=== PATIENT | male | born 1990 | race African-American/Black ===

== ENCOUNTER 2021-08-24 16:26 | Emergency (ER) | payer MEDICAID ==
[~2021-08-24] VITALS: Ht 180.3 cm; Wt 90.7 kg
[2021-08-24 20:51] VITALS: BP 152/100
== END 2021-08-24 21:31 | disposition home or self-care (01) ==
LOC: ER 16:26
DX: S93.602A Unspecified sprain of left foot, initial encounter (principal); I10 Essential (primary) hypertension; Z91.010 Allergy to peanuts; W23.0XXA Caught, crushed, jammed, or pinched between moving objects, initial encounter; Y93.89 Activity, other specified; Y92.89 Other specified places as the place of occurrence of the external cause; Y99.8 Other external cause status
CPT/HCPCS: 73630

== ENCOUNTER 2024-11-28 16:01 | Emergency (ER) | payer MEDICAID ==
[~2024-11-28] VITALS: Ht 180.3 cm; Wt 90.0 kg
[2024-11-28] MEDS: TETRACAINE HCL 0.5% OPTH(EYE) SOLN 4ML RIGHTEYE ONE (16:23)
[2024-11-28] MEDS: ERYTHROMY OPTH OINT 5mg/gm 1gm or 3.5gm tube OP ONE (16:23)
[2024-11-28] MEDS: MORPHINE SULFATE INJ 2 MG/ml SYRG IM ONE (16:54)
[2024-11-28 16:55] VITALS: TEMP 98.9; O2SAT 99
--- NOTE | 2024-11-28 16:55 | ED.PDOC ---
Eye-HPI HPI Comments 34-YEAR-OLD MALE PRESENTS TO THE EMERGENCY DEPARTMENT WITH ACCIDENTAL SUPER GLUE TO THE RIGHT EYE. HE STATES HE WAS USING THE SUPER GLUE, SUPER GLUE SQUIRTED OUT OF THE CONTAINER AND LANDED IN THE RIGHT EYE. HE HAS BEEN ATTEMPTING TO RINSE THE EYE WITH WATER. HE HAS BURNING IN THE RIGHT EYE. THE EYELIDS ARE GLUED SHUT. HE HAS A HISTORY OF HYPERTENSION. HE IS DENYING ANY CHEST PAIN, SHORTNESS OF BREATH AT THIS TIME. Chief Complaint: Eye Problem Time Seen by MD: 16:12 Primary Care Provider: UNKNOWN Allergies: Coded Allergies: Peanut Oil (Verified Allergy, Severe, AIRWAY COMPROMISE, 05/27/18) Home Meds Active Scripts Ophthalmic Irrigation Solution (Eye Wash) [place], 1 BOT OP DAILY for 3 Days, #100 ML Prov:JUAN YANG MD 11/28/24 Erythromycin (Erythromycin) 5 Mg/Gm Oin, 1 MG OP TID for 3 Days, #9 OIN Prov:JUAN YANG MD 11/28/24 Mode of Arrival: Ambulatory Eye Location: Right Lids: Location (RIGHT EYELIDS STUCK TOGETHER, 0.5 CM SECTION OF MEDIAL EYELID ABLE TO OPEN, OBSERVED PORTION CONJUNCTIVA IS ERYTHEMATOUS/INJECTED, DRIED SUPER GLUE IN THE LASHES,) Vital Signs Vital Signs Date Time Temp Pulse Resp B/P (MAP) Pulse Ox O2 Delivery O2 Flow Rate FiO2 11/28/24 16:55 81 17 99 Room Air 11/28/24 16:55 98.9 159/108 (125) 98.9 Physical Exam GENERAL: AWAKE, ALERT AND ORIENTED. NO ACUTE DISTRESS. SKIN: SKIN IN WARM, DRY AND INTACT WITHOUT RASHES OR LESIONS. HEENT: THE HEAD IS NORMOCEPHALIC AND ATRAUMATIC. CONJUNCTIVAE ARE CLEAR WITHOUT EXUDATES OR HEMORRHAGE. SCLERA IS NON-ICTERIC. NECK: NORMAL RANGE OF MOTION. NO JVD. CARDIAC: REGULAR RATE RESPIRATORY: NO SIGNS OF RESPIRATORY DISTRESS. NO STRIDOR. EXTREMITIES: UPPER AND LOWER EXTREMITIES ARE ATRAUMATIC IN APPEARANCE WITHOUT TENDERNESS OR DEFORMITY. NEUROLOGICAL: THE PATIENT IS AWAKE, ALERT AND ORIENTED TO PERSON, PLACE, AND TIME WITH NORMAL SPEECH. SPEECH IS CLEAR. THERE IS NO FACIAL ASYMMETRY. PSYCHIATRIC: APPROPRIATE MOOD AND AFFECT. GOOD JUDGEMENT AND INSIGHT. NO VISUAL OR AUDITORY HALLUCINATIONS. NO SUICIDAL OR HOMICIDAL IDEATION. Review of Systems: REVIEW OF SYSTEMS: NO FEVER, NO CHILLS, HEENT: RIGHT EYE BURNING, BLURRED VISION, WATERING CARDIAC: NO CHEST PAIN. NO PALPITATIONS. LUNGS: NO SHORTNESS OF BREATH, GI: NO ABDOMINAL PAIN, NO VOMITING MUSCULOSKELETAL: NO JOINT PAIN , NO BACK PAIN SKIN: NO RASH, NO WOUND NEURO: NO HEADACHE, NO DIZZINESS, NO SYNCOPE Past Medical History PAST MEDICAL HISTORY: HTN Surgical History: Denies all surgeries Family History Family History: Reviewed,noncontributory to illness, No family hx of HTN Social History Smoker: Non-Smoker Alcohol: Rarely Drugs: Marijuana Lives In: Home Was a procedure done? Was a procedure done?: No EENT DIFF Eye: Corneal Abrasion, Corneal Lacerations, Corneal Ulceration, Foreign Body- Conjunctiva, Foreign Body-Corneal, Foreign Body-Lid, Other X-Ray, Labs, Meds, VS Vital Signs Date Time Temp Pulse Resp B/P (MAP) Pulse Ox O2 Delivery O2 Flow Rate FiO2 11/28/24 16:55 81 17 99 Room Air 11/28/24 16:55 98.9 81 17 159/108 (125) 99 98.9 11/28/24 16:54 81 17 159/108 11/28/24 16:11 98.5 72 20 169/125 (140) 97 Current Medications Medications (Trade) Dose Ordered Sig/Filiberto Route Start Time Stop Time Status Last Admin Morphine Sulfate 4 mg ONCE ONCE IM 11/28/24 16:15 11/28/24 16:16 DC 11/28/24 16:54 Time of 1ST Reevaluation: 16:51 Reevaluation 1ST: Improved Patient Education/Counseling: Diagnosis, Treatment, Prognosis, Need For Follow Up Family Education/Counseling: No Family Present Departure 1 Departure Time of Disposition: 17:35 Impression: Primary Impression: Chemical injury of right eye Disposition: 01 HOME / SELF CARE / HOMELESS Condition: Stable Additional Instructions: ED DISCHARGE INSTRUCTIONS INSTRUCTIONS: PLEASE READ ALL INSTRUCTIONS PROVIDED IN THIS PACKET CAREFULLY. USE ANTIBIOTIC OINTMENT IN THE RIGHT EYE PRESCRIBED FOR THE NEXT 3 DAYS. ALTHOUGH YOU HAVE BEEN DISCHARGED FROM THE EMERGENCY DEPARTMENT, THIS DOES NOT MEAN THAT YOU HAVE A "CLEAN BILL OF HEALTH". NO DEFINITIVE DIAGNOSIS FOR YOUR SYMPTOMS HAS BEEN MADE TODAY. IT IS POSSIBLE THAT YOU ARE IN THE PROCESS OF DEVELOPING A SERIOUS ILLNESS. THIS IS WHY YOU MUST RETURN TO THE ED WITHOUT FAIL IF ANY NEW OR WORSENING SYMPTOMS (ESPECIALLY IF YOUR SYMPTOMS INCLUDE SYMPTOM OF FOREIGN OBJECT IN THE EYE, CONTINUED BLURRED VISION AFTER 24-48 HOURS, WORSENING EYE PAIN, WORSENING EYE SWELLING OR REDNESS, ABNORMAL DISCHARGE FROM THE EYE, CHEST PAIN, TROUBLE BREATHING, ABDOMINAL PAIN, FEVER, HEADACHE, CONFUSION, TROUBLE SEEING, OR TROUBLE WALKING) IT IS ALSO VERY IMPORTANT THAT YOU SEE A PRIMARY CARE DOCTOR WITHIN THE NEXT 3-5 DAYS TO FOLLOW UP. WE WILL NEED A REFERRAL FROM YOUR PRIMARY CARE PROVIDER TO FOLLOW UP WITH AN POISER (EYE DOCTOR). IF YOU ARE UNABLE TO GET AN APPOINTMENT, RETURN TO THE ED FOR RE-EVALUATION. e-Prescriptions Ophthalmic Irrigation Solution (Eye Wash) [place] 1 BOT OP DAILY for 3 Days, #100 ML Prov: JUAN YANG MD 11/28/24 Erythromycin (Erythromycin) 5 Mg/Gm Oin 1 MG OP TID for 3 Days, #9 OIN Prov: JUAN YANG MD 11/28/24 Comments 34-YEAR-OLD MALE WHO PRESENTED TO THE EMERGENCY DEPARTMENT WITH ACCIDENTAL SUPER GLUE INJECTION INTO THE RIGHT EYE. TETRACAINE DROPS WERE APPLIED TO THE CONJUNCTIVA, ERYTHROMYCIN OINTMENT APPLIED TO THE EYE LIDS. PATIENT NOTED TO BE HYPERTENSIVE, LIKELY SECONDARY TO PAIN. HE IS ASYMPTOMATIC. MAJORITY OF THE PALPEBRAL FISSURE WAS OPENED BY TRIMMING OF LASHES. THE EYE WAS IRRIGATED, EXAM SHOWS NO GLUE ON THE CONJUNCTIVA OR APPARENT CONJUNCTIVAL ABRASION. PATIENT ADVISED TO USE ANTIBIOTIC OINTMENT FOR THE NEXT 3 DAYS AND FOLLOW UP WITH AN POISER. ADVISED TO RETURN TO THE EMERGENCY DEPARTMENT WITH ANY NEW, WORSENING OR CONCERNING SYMPTOMS. - I reviewed the following notes from the pt's past medical encounters: ENCOUNTER 08/2021 FOR FOOT SPRAIN The following tests were ordered, and results were reviewed by me: (See diagnostic results section) The following test were independently interpreted by me: N/A Additional information was gathered from interviewing the following independent historians: (N/A) I reviewed and agreed with the following test results read by other providers: N/A I discussed treatments and results with medical personnel and: N/A Decision regarding hospitalization or escalation of hospital level of care: Risks and benefits of admission for further treatment of patient's condition was considered however due to patient's stable condition patient will be discharged to follow up closely or return to care for worsening of condition or inability to follow up. JUAN YANG MD Nov 28, 2024 16:55
[2024-11-28] MEDS: FLUORESCEIN SOD OPTH TEST STRIP OP STA (17:29)
[2024-11-28] MEDS ORDERED: [UNRECOGNIZED DRUG - CODE] OP (17:41)
[2024-11-28] MEDS ORDERED: ERY05OO OP (17:41)
[2024-11-28 17:53] VITALS: BP 157/100; PULSE 57; RESP 16
== END 2024-11-28 17:55 | disposition home or self-care (01) ==
LOC: ER 16:01
DX: S05.8X1A Other injuries of right eye and orbit, initial encounter (principal); I10 Essential (primary) hypertension; F15.90 Other stimulant use, unspecified, uncomplicated; Z79.899 Other long term (current) drug therapy; Z91.010 Allergy to peanuts; X58.XXXA Exposure to other specified factors, initial encounter; Y93.89 Activity, other specified; Y92.89 Other specified places as the place of occurrence of the external cause; Y99.8 Other external cause status
CPT/HCPCS: 96372; 99283; J2270

== ENCOUNTER 2025-07-21 05:26 | Inpatient (IN) | payer MEDICAID ==
[~2025-07-21] VITALS: Ht 180.3 cm; Wt 91.4 kg
[2025-07-21 00:10] VITALS: PULSE 68; RESP 17; O2SAT 96
[~2025-07-21 05:26] MED LIST: ERY05OO OP; [UNRECOGNIZED DRUG - CODE] OP
[2025-07-21] MEDS: KETOROLAC TROMETH 60MG/2ML VIAL IM ONE (06:30)
--- NOTE | 2025-07-21 06:30 | ED.PDOC ---
General HPI Comments 34 year old male presents to the ED with a chief complaint of RT flank pain onset 1 day. For the past day, patient has been experiencing RT flank pain, worsens with deep breaths. Patient has tried at home remedies with no improvement of symptoms, also tried muscle relaxers with no improvement. PMHx HTN. Denies fall, injury, trauma, nausea, vomiting, diarrhea, dysuria, hematuria, dizziness, fever, chills. No other symptoms or modifying factors present at this time. Chief Complaint: Flank Pain Time Seen by MD: 06:10 Primary Care Provider: UNKNOWN Reviewed notes: Medications, Allergies Allergies: Coded Allergies: Peanut Oil (Verified Allergy, Severe, AIRWAY COMPROMISE, 05/27/18) Home Meds Active Scripts Ophthalmic Irrigation Solution (Eye Wash) Brielle, 1 BOT OP DAILY for 3 Days, #100 ML Prov:JUAN YANG MD 11/28/24 Erythromycin (Erythromycin) 5 Mg/Gm Oin, 1 MG OP TID for 3 Days, #9 OIN Prov:JUAN YANG MD 11/28/24 Information Source: Patient Mode of Arrival: Ambulatory Severity: Moderate Timing: Days Duration: Since onset Prehospital treatment: None Onset: Spontaneous Symptoms: Other History of: None Location: (R) Flank Penile discharge: None Modifying factors: None associated signs and symptoms: Flank Pain, Back Pain Past Medical History PAST MEDICAL HISTORY: HTN Surgical History: Denies all surgeries Family History Family History: Reviewed,noncontributory to illness, No family hx of HTN Social History Smoker: Non-Smoker Alcohol: Rarely Drugs: Marijuana Lives In: Home Constitutional: denies: chills, diaphoresis, fatigue, fever, malaise, sweats, weakness, others EENTM: denies: blurred vision, double vision, ear bleeding, ear discharge, ear drainage, ear pain, ear ringing, eye pain, eye redness, hearing loss, mouth pain, mouth swelling, nasal discharge, nose bleeding, nose congestion, nose pain, photophobia, tearing, throat pain, throat swelling, voice changes, others Respiratory: denies: cough, hemoptysis, orthopnea, SOB at rest, shortness of breath, SOB with excertion, stridor, wheezing, others Cardiovascular: denies: chest pain, dizzy spells, diaphoresis, Dyspnea on exertion, edema, irregular heart beat, left arm pain, lightheadedness, palpitations, PND, syncope, others Gastrointestinal: denies: abdomen distended, abdominal pain, blood streaked bowels, constipated, diarrhea, dysphagia, difficulty swallowing, hematemesis, melena, nausea, poor appetite, poor fluid intake, rectal bleeding, rectal pain, vomiting, others Genitourinary: reports: flank pain; denies: burning, dysuria, frequency, hematuria, incontinence, penile discharge, penile sore, pain, testicle pain, testicle swelling, urgency, others Neurological: denies: dizziness, fainting, headache, left sided numbness, left sided weakness, numbness, paresthesia, pre-existing deficit, right sided numbness, right sided weakness, seizure, speech problems, tingling, tremors, weakness, others Musculoskeletal: reports: back pain; denies: gout, joint pain, joint swelling, muscle pain, muscle stiffness, neck pain, others Integumetry: denies: bruises, change in color, change in hair/nails, dryness, laceration, lesions, lumps, rash, wounds, others Allergic/Immunocompromised: denies: Difficulty Healing, Frequent Infections, Hives, Itching, others Hematologic/Lymphatic: denies: anemia, blood clots, easy bleeding, easy bruising, swollen glands, others Endocrine: denies: excessive hunger, excessive sweating, excessive thirst, excessive urination, flushing, intolerance to cold, intolerance to heat, unexplained weight gain, unexplained weight loss, others Psychiatric: denies: anxiety, bipolar disorder, depression, hopeless, panic disorder, schizophrenia, sleepless, suicidal, others All Other Systems: Reviewed and Negative Physical Exam General Appearance: Moderate Distress, Normal HEENT: Normal ENT Inspection, Pharynx Normal, TMs Normal Neck: Full Range of Motion, Non-Tender, Normal, Normal Inspection Respiratory: Chest Non-Tender, Lungs Clear, No Accessory Muscle Use, No Res piratory Distress, Normal Breath Sounds Cardiovascular: No Edema, No JVD, No Murmur, No Gallop, Normal Peripheral Pulses, Regular Rate/Rhythm Breast Exam: Deferred Gastrointestinal: No Organomegaly, Non Tender, No Pulsatile Mass, Normal Bowel Sounds, Soft Genitalia: Deferred Pelvic: Deferred Rectal: Deferred Extremities: No calf tenderness, Normal capillary refill, Normal inspection, Normal range of motion, Non-tender, No pedal edema Musculoskeletal : Apperance: Normal Neurologic: Alert, regional education coordinator II-XII nml as Tested, No Motor Deficits, Normal Affect, Normal Mood, No Sensory Deficits Cerebellar Function: Normal Reflexes: Normal Skin: Dry, Normal Color, Warm Peripheral Pulses: 3+ Radial (R), 3+ Radial (L) Lymphatic: No Adenopathy Was a procedure done? Was a procedure done?: No Differential Diagnosis Kidney stone (Female): Musculoskeletal pain, Urinary obstruction, Urolithiasis X-Ray, Labs, Meds, VS Vital Signs Date Time Temp Pulse Resp B/P (MAP) Pulse Ox O2 Delivery O2 Flow Rate FiO2 07/21/25 08:08 67 18 162/108 (126) 98 07/21/25 08:08 64 18 98 Room Air 07/21/25 05:27 98.1 65 18 148/101 100 98.1 Lab Test 07/21/25 08:05 07/21/25 06:52 Range/Units Urine Color Light-yellow Yellow Urine Clarity Clear Clear Urine pH 6.5 5.0-9.0 Urine Specific [place] 1.034 1.001-1.035 Urine Protein Negative Negative Urine Ketones Negative Negative Urine Blood Negative Negative /uL Urine Nitrite Negative Negative Urine Bilirubin Negative Negative Urine Urobilinogen Normal Negative mg/dL Urine Leukocyte Esterase Negative Negative /uL Urine RBC 1 0 - 3 /hpf Urine Microscopic WBC 1 0-3 /HPF Urine Squamous Epithelial Cells None seen <5 /hpf Urine Bacteria None seen None Seen /hpf Urine Mucus Few None Seen Urine Glucose Normal Normal mg/dL Sodium Level 137 136-145 mmol/L Potassium Level 4.0 3.5-5.1 mmol/L Chloride Level 104 98-107 mmol/L Carbon Dioxide Level 28 20-31 mmol/L Anion Gap 5 5-15 Blood Urea Nitrogen 11 9-23 mg/dL Creatinine 1.15 0.700-1.30 mg/dL Glomerular Filtration Rate Calc 85 >90 mL/min BUN/Creatinine Ratio 9.6 L 10.0-20.0 Serum Glucose 111 H 74-106 mg/dL Calcium Level 9.0 8.7-10.4 mg/dL Current Medications Medications (Trade) Dose Ordered Sig/Filiberto Route Start Time Stop Time Status Last Admin Ketorolac Tromethamine (Toradol Injection) 60 mg ONCE ONCE IM 07/21/25 06:30 07/21/25 06:31 DC 07/21/25 06:30 Patient alert. Complaining back pain. No trauma related. Vitals stable. Ambulating. History of blood pressure. Given clonidine. X-ray reviewed does not show any acute process. Explained to the patient. Patient continues to have pain. Possible kidney stone. He has no blood in the urine. Establish intravenous access. Was given fluids. [place] [id number] Ph: [phone] DIAGNOSTIC IMAGING Diagnostic Imaging Report : [id number] Signed PATIENT: ANA M AZAR ACCT: [id number] UNIT: [id number] : 1990 LOC: ER ROOM / BED: / AGE / SEX: 34 / M ADM STATUS: REG ER SERVICE 5 ORDERING PHYSICIAN: DELROY CALDERON MD PROCEDURE(s): LS - LUMBAR SPINE 4+ VIEW REASON: degen ORDER NUMBER(s): [id number], ACCESSION NUMBER(s): [id number] INDICATION: degen COMPARISON: None TECHNIQUE: Frontal, lateral and oblique views of the lumbar spine were obtained. FINDINGS: The lumbar vertebral alignment is normal. The intervertebral disc spaces are well-maintained. No significant facet arthropathy is noted. No acute fracture, vertebral compression deformity or aggressive osseous lesions. The paravertebral soft tissues are grossly unremarkable. IMPRESSION: 1. No acute fracture. ATED BY: JAMMIE LOPEZ MD DICTATED DATE/TIME: 07/21/25713 SIGNED BY: JAMMIE LOPEZ MD SIGNED DATE/TIME: 07/21/25713 CC: Time of 1ST Reevaluation: 06:40 Reevaluation 1ST: Unchanged Patient Education/Counseling: Diagnosis, Treatment, Prognosis Family Education/Counseling: No Family Present SEPSIS Sepsis Screen Date sepsis recognized/suspect: Jul 21, 2025 Time Sepsis recognized/suspect: 529 Recent Procedure: No On Antibiotic Therapy: No Respiratory Rate >20: No Heart Rate >90: No Temp<36 C (96.8 F) or >38.3 C: No SBP <90 or MAP <65 mmHG: No New Acute Mental Status Change: No Is the patient on CPAP, BIPAP,: No Physician Orders Lumbar Spine 4+ View (07/21/25 06:26) Ct Ab Pel Wo Con-No Oral Or Iv (07/21/25 10:31) Vital Signs Date Time Temp Pulse Resp B/P (MAP) Pulse Ox O2 Delivery O2 Flow Rate FiO2 07/21/25 08:08 67 18 162/108 (126) 98 07/21/25 08:08 64 18 98 Room Air 07/21/25 05:27 98.1 65 18 148/101 100 98.1 Medications Medications Dose Ordered Sig/Filiberto Route Start Time Stop Time Status Last Admin Dose Admin Ketorolac Tromethamine 60 mg ONCE ONCE IM 07/21/25 06:30 07/21/25 06:31 DC 07/21/25 06:30 Departure 1 Departure Time of Disposition: 06:37 Impression: Primary Impression: Intractable abdominal pain Additional Impression: Lumbar strain Qualified Codes: S39.012A - Strain of muscle, fascia and tendon of lower back, initial encounter Disposition: ADMITTED INPATIENT Admit to: Med Surg Condition: Guarded Critical Care Note Critical Care Time?: No Stability Stability form required: No Heart Score Heart Score: Heart Score Response (Comments) Value History N/A 0 EKG N/A 0 Age N/A 0 Risk Factors N/A 0 Troponin N/A 0 Total 0 I personally scribed for DELROY CALDERON MD ([email or web address]) on 07/21/25 at 06:29. Electronically submitted by Naldo Bravo ([email or web address]). I personally scribed for DELROY CALDERON MD ([email or web address]) on 07/21/25 at 07:52. Electronically submitted by Naldo Bravo ([email or web address]). DELROY CALDERON MD Jul 21, 2025 06:29
--- NOTE | 2025-07-21 07:17 | DVH ---
INDICATION: degen COMPARISON: None TECHNIQUE: Frontal, lateral and oblique views of the lumbar spine were obtained. FINDINGS: The lumbar vertebral alignment is normal. The intervertebral disc spaces are well-maintained. No significant facet arthropathy is noted. No acute fracture, vertebral compression deformity or aggressive osseous lesions. The paravertebral soft tissues are grossly unremarkable. IMPRESSION: 1. No acute fracture.
[2025-07-21 07:20] LABS: Chloride 104 mmol/L (98-107); Potassium 4.0 mmol/L (3.5-5.1); Sodium 137 mmol/L (136-145)
[2025-07-21 07:21] LABS: Anion Gap 5 (5-15); Calcium 9.0 mg/dL (8.7-10.4); Carbon Dioxide 28 mmol/L (20-31)
[2025-07-21 07:26] LABS: BUN/Creatinine Ratio 9.6 (10.0-20.0); Blood Urea Nitrogen 11 mg/dL (9-23); Glucose 111 mg/dL (74-106)
[2025-07-21 08:35] LABS: Urine Protein, UAD Negative (Negative)
[2025-07-21] MEDS: SODIUM CHLORIDE 0.9% 1,000 ML IV ONE (10:52)
--- NOTE | 2025-07-21 11:12 | DVH ---
Exam: CT CT AB PEL WO CON-NO ORAL OR IV History: stone Comparison Study: None Technique: Multidetector spiral CT of the abdomen and pelvis was performed from lung bases to pubic symphysis. Imaging was performed without IV contrast. Axial, coronal and sagittal multiplanar reform ats were obtained from the axial data set by the technologist. Radiation dose : Abdomen/Pelvis: CTDIvol 9.55 mGy, DLP 577.85 mGy*cm. Findings: Evaluation of solid organs is limited due to lack of intravenous contrast use. Lung Bases: No acute or significant lung base finding. Normal heart size. No pleural or pericardial effusion. Liver: The liver is normal in size. No focal lesions. Gallbladder and biliary Tree: Unremarkable Spleen: Unremarkable Pancreas: The pancreas is grossly normal in appearance. Adrenal Glands: Unremarkable Kidneys: Kidneys are grossly normal without calculi or hydronephrosis. Bladder: Grossly unremarkable for degree of distention. Bowel: The stomach is grossly normal in appearance. Small bowel and colon are normal in caliber and d istribution. Normal appendix is visualized in the right lower quadrant without findings of appendicit is. Ascites: Absent Lymphadenopathy: No mesenteric, retroperitoneal or periportal lymphadenopathy. Abdominal wall and Mesentery: Unremarkable. Vasculature: The visualized abdominal aorta is normal in size and caliber. Evaluation of abdominal a nd pelvic vessels is limited due to lack of intravenous contrast. Pelvic Organs: Unremarkable Musculoskeletal: No aggressive focal bony lesions, acute fractures or dislocation. IMPRESSION: 1. Limited evaluation of the solid abdominal viscera and vasculature due to the lack of intravenous c ontrast. 2. No definite renal or ureteral calculi. 3. No hydronephrosis. 4. No evidence of appendicitis. 5. No acute abnormalities. Radiation optimization: All CT scans at this facility use at least one of these dose optimization max hniques: Automated exposure control mA and/or kV adjustment per patient size (includes targeted exams where dose is matched to clinical indication) or iterative reconstruction. HS:Y
[2025-07-21 11:37] LABS: Hematocrit 46.4 % (41.0-53.0); Hemoglobin 15.7 g/dL (13.5-17.5); Mean Corpuscular Hemoglobin 28.8 pg (28.0-32.0); Mean Corpuscular Volume 85.3 fL (80.0-100.0); Nucleated Red Blood Cells % 0.2 %
[2025-07-21] MEDS ORDERED: ACETAMINOPHEN 325 MG TAB PO PRN (12:15)
[2025-07-21] MEDS ORDERED: DOCUSATE SOD 100 MG CAP PO PRN (12:15)
[2025-07-21] MEDS ORDERED: ONDANSETRON HCL 4 MG/2 ML VIAL IV PRN (12:15)
[2025-07-21] MEDS ORDERED: HYDR25TA87 PO (12:17)
[2025-07-21] MEDS ORDERED: HYDR25TA5 PO (12:17)
--- NOTE | 2025-07-21 12:30 | DVHHP2 ---
History of Present Illness Reason for Visit: Back pain History of Present Illness Mena Willard is a 34-year-old male with past medical history of hypertension, who came to the hospital for back pain. Patient states he woke up 07/21/2025, 0500 with severe back pain. He tried taking muscle relaxers and other home remedies without any improvement. He states the pain is severe 10/10 when trying to move, bend over, or cough. Cardiovascular: HTN Past Surgical History: None Smoke: No ALCOHOL: occassional Drugs: Marijuana Lives: with Family Domestic Violence: Neg Review of Systems Constitutional: No: Fever, Chills, Sweats, Weakness, Malaise, Other Eyes: No: Pain, Vision change, Conjunctivae inflammation, Eyelid inflammation, Other, Redness ENT: No: Ear pain, Ear discharge, Nose pain, Nose discharge, Nose congestion, Mouth pain, Mouth swelling, Throat pain, Throat swelling, Other Respiratory: No: Cough, Dry, Shortness of breath, SOB with excertion, Wheezing, Hemoptysis, Pleuritic Pain, Sputum, Wheezing, Other Cardiovascular: No: Chest Pain, Palpitations, Orthopnea, Paroxysmal Noc. Dyspnea, Edema, Lt Headedness, Other Gastrointestinal: No: Nausea, Vomiting, Abdominal Pain, Diarrhea, Constipation, Melena, Hematochezia, Other Genitourinary: No Dysuria, No Frequency, No Incontinence, No Hematuria, No Retention, No Other Musculoskeletal: back pain (right flank); No: other, neck pain, shoulder pain, arm pain, hand pain, leg pain, foot pain Skin: No: Rash, Lesions, Jaundice, Bruising, Other Neurological: No: Weakness, Numbness, Incoordination, Change in speech, Confusion, Seizures, Other Allergies: Coded Allergies: Peanut Oil (Verified Allergy, Severe, [employer], 05/27/18) Medications Current Medications Medications Dose Ordered Sig/Filiberto Route Start Time Stop Time Status Last Admin Dose Admin Acetaminophen/ Hydrocodone Bitart 1 tab Q4HP PRN PO 07/21/25 12:15 UNV Ondansetron HCl 4 mg Q4HP PRN IV 07/21/25 12:15 UNV Docusate Sodium 100 mg BIDPRN PRN PO 07/21/25 12:15 UNV Acetaminophen 650 mg Q6HP PRN PO 07/21/25 12:15 UNV Exam Vital Signs Vital Signs Date Time Temp Pulse Resp B/P (MAP) Pulse Ox O2 Delivery O2 Flow Rate FiO2 07/21/25 11:24 57 16 166/90 (115) 99 07/21/25 08:08 Room Air 07/21/25 05:27 98.1 98.1 General Appearance: Alert, Oriented X3, Cooperative, moderate distress HEENT: Atraumatic, PERRLA Respiratory: Clear to auscultation, Normal air movement Cardiovascular: Regular rate, Normal S1, Normal S2, No murmurs Abdominal: Normal bowel sounds, Soft, No tenderness Extremities: No clubbing, No cyanosis, No edema, Normal pulses, Other (severe back pain, difficulty standing or bending) Skin: No rashes, No breakdown, No significant lesion Neuro: Normal gait, Normal speech Psych/Mental Status: Mental status NL, Mood NL Labs/Xrays Labs Test 07/21/25 08:05 07/21/25 06:52 Range/Units Urine Color Light-yellow Yellow Urine Clarity Clear Clear Urine pH 6.5 5.0-9.0 Urine Specific [place] 1.034 1.001-1.035 Urine Protein Negative Negative Urine Ketones Negative Negative Urine Blood Negative Negative /uL Urine Nitrite Negative Negative Urine Bilirubin Negative Negative Urine Urobilinogen Normal Negative mg/dL Urine Leukocyte Esterase Negative Negative /uL Urine RBC 1 0 - 3 /hpf Urine Microscopic WBC 1 0-3 /HPF Urine Squamous Epithelial Cells None seen <5 /hpf Urine Bacteria None seen None Seen /hpf Urine Mucus Few None Seen Urine Glucose Normal Normal mg/dL White Blood Count 5.9 4.4-10.8 10^3/uL Red Blood Count 5.45 4.5-5.90 10^6/uL Hemoglobin 15.7 13.5-17.5 g/dL Hematocrit 46.4 41.0-53.0 % Mean Corpuscular Volume 85.3 80.0-100.0 fL Mean Corpuscular Hemoglobin 28.8 28.0-32.0 pg Mean Corpuscular Hemoglobin Concent 33.8 32.0-36.0 g/dL Red Cell Distribution Width 14.4 H 11.8-14.3 % Platelet Count 238 140-450 10^3/uL Mean Platelet Volume 8.2 6.9-10.8 fL Neutrophils (%) (Auto) 59.1 37.0-80.0 % Lymphocytes (%) (Auto) 30.9 10.0-50.0 % Monocytes (%) (Auto) 5.7 0.0-12.0 % Eosinophils (%) (Auto) 3.6 0.0-7.0 % Basophils (%) (Auto) 0.7 0.0-2.0 % Neutrophils # (Auto) 3.5 1.6-8.6 10 ^3/uL Lymphocytes # (Auto) 1.8 0.4-5.4 10 ^3/uL Monocytes # (Auto) 0.3 0-1.3 10 ^3/uL Eosinophils # (Auto) 0.2 0-0.8 10 ^3/uL Basophils # (Auto) 0 0-0.2 10 ^3/uL Nucleated Red Blood Cells 0.2 % Sodium Level 137 136-145 mmol/L Potassium Level 4.0 3.5-5.1 mmol/L Chloride Level 104 98-107 mmol/L Carbon Dioxide Level 28 20-31 mmol/L Anion Gap 5 5-15 Blood Urea Nitrogen 11 9-23 mg/dL Creatinine 1.15 0.700-1.30 mg/dL Glomerular Filtration Rate Calc 85 >90 mL/min BUN/Creatinine Ratio 9.6 L 10.0-20.0 Serum Glucose 111 H 74-106 mg/dL Calcium Level 9.0 8.7-10.4 mg/dL TECHNIQUE: Frontal, lateral and oblique views of the lumbar spine were obtained. FINDINGS: The lumbar vertebral alignment is normal. The intervertebral disc spaces are well-maintained. No significant facet arthropathy is noted. No acute fracture, vertebral compression deformity or aggressive osseous lesions. The paravertebral soft tissues are grossly unremarkable. IMPRESSION: 1. No acute fracture. Exam: CT CT AB PEL WO CON-NO ORAL OR IV Findings: Evaluation of solid organs is limited due to lack of intravenous contrast use. Lung Bases: No acute or significant lung base finding. Normal heart size. No pleural or pericardial effusion. Liver: The liver is normal in size. No focal lesions. Gallbladder and biliary Tree: Unremarkable Spleen: Unremarkable Pancreas: The pancreas is grossly normal in appearance. Adrenal Glands: Unremarkable Kidneys: Kidneys are grossly normal without calculi or hydronephrosis. Bladder: Grossly unremarkable for degree of distention. Bowel: The stomach is grossly normal in appearance. Small bowel and colon are normal in caliber and distribution. Normal appendix is visualized in the right lower quadrant without findings of appendicitis. Ascites: Absent Lymphadenopathy: No mesenteric, retroperitoneal or periportal lymphadenopathy. Abdominal wall and Mesentery: Unremarkable. Vasculature: The visualized abdominal aorta is normal in size and caliber. Evaluation of abdominal and pelvic vessels is limited due to lack of intravenous contrast. Pelvic Organs: Unremarkable Musculoskeletal: No aggressive focal bony lesions, acute fractures or dislocation. IMPRESSION: 1. Limited evaluation of the solid abdominal viscera and vasculature due to the lack of intravenous contrast. 2. No definite renal or ureteral calculi. 3. No hydronephrosis. 4. No evidence of appendicitis. 5. No acute abnormalities. SEPSIS Sepsis Screen Date sepsis recognized/suspect: Jul 21, 2025 Time Sepsis recognized/suspect: 529 Recent Procedure: No On Antibiotic Therapy: No Respiratory Rate >20: No Heart Rate >90: No Temp<36 C (96.8 F) or >38.3 C: No SBP <90 or MAP <65 mmHG: No New Acute Mental Status Change: No Is the patient on CPAP, BIPAP,: No Physician Orders Lumbar Spine 4+ View (07/21/25 06:26) Ct Ab Pel Wo Con-No Oral Or Iv (07/21/25 10:31) Admit (07/21/25 12:13) Code Status (07/21/25 12:13) 2 Gm Sodium Diet (07/21/25 Lunch) Hydrocodone-Acet 5/325mg Tab ([place] 5/32 (07/21/25 12:15) Ondansetron Hcl (Zofran) (07/21/25 12:15) Docusate Sodium Capsule (Colace Capsule) (07/21/25 12:15) Complete Blood Count (07/22/25 04:00) Comprehensive Metabolic Panel (07/22/25 04:00) Pt Request For Service (07/21/25 12:13) Condition: Serious (07/21/25 12:13) Acetaminophen Tablet (Tylenol Tablet) (07/21/25 12:15) Hydrochlorothiazide Tablet (Hydrochlorot (07/21/25 12:30) Ketorolac Injection (Toradol Injection) (07/21/25 12:30) Hydrochlorothiazide Tablet (Hydrochlorot (07/22/25 10:00) Hydralazine Hcl Tablet (Apresoline Table (07/21/25 12:30) Vital Signs Date Time Temp Pulse Resp B/P (MAP) Pulse Ox O2 Delivery O2 Flow Rate FiO2 07/21/25 11:24 57 16 166/90 (115) 99 07/21/25 08:08 67 18 162/108 (126) 98 07/21/25 08:08 64 18 98 Room Air 07/21/25 05:27 98.1 65 18 148/101 100 98.1 Laboratory Tests Test 07/21/25 06:52 White Blood Count 5.9 10^3/uL (4.4-10.8) Medications Medications Dose Ordered Sig/Filiberto Route Start Time Stop Time Status Last Admin Dose Admin Ketorolac Tromethamine 60 mg ONCE ONCE IM 07/21/25 06:30 07/21/25 06:31 DC 07/21/25 06:30 60 MG Sodium Chloride 1,000 ml @ 1,000 mls/hr Q1H ONCE IV 07/21/25 10:45 07/21/25 11:44 DC 07/21/25 10:52 1,000 MLS/HR Assessment/Plan Assessment/Plan Assessment: Intractable low back pain, Hypertension, Plan: Admit to Med-Surg, IV steroids, Physical therapy evaluation, Pain management, Home medications reconciled, Plan discussed with: Patient My Orders Orders - KAREY UMAÑA [employer] Procedure Category Date Status Time Admit ADMIT 07/21/25 Transmitted 12:13 Code Status CODE 07/21/25 Transmitted 12:13 2 Gm Sodium Diet DIET 07/21/25 Transmitted Lunch Hydrocodone-Acet PHA 07/21/25 Logged 5/325mg Tab ([place] 12:15 Ondansetron Hcl PHA 07/21/25 Logged (Zofran) 12:15 Docusate Sodium PHA 07/21/25 Logged Capsule (Colace 12:15 Complete Blood Count LAB 07/22/25 Verified 04:00 Comprehensive LAB 07/22/25 Verified Metabolic Panel 04:00 Pt Request For Service PT 07/21/25 Logged 12:13 Condition: Serious JACQUES 07/21/25 In Process 12:13 Acetaminophen Tablet PHA 07/21/25 Logged (Tylenol Tablet) 12:15 Hydrochlorothiazide PHA 07/21/25 Logged Tablet (Hydrochlorot 12:30 Ketorolac Injection PHA 07/21/25 Transmitted (Toradol Injection) 12:30 Hydrochlorothiazide PHA 07/22/25 Transmitted Tablet (Hydrochlorot 10:00 Hydralazine Hcl PHA 07/21/25 Transmitted Tablet (Apresoline 12:30 Date of Service: Jul 21, 2025 Billing Provider: KAREY UMAÑA Common Visit Codes: 84253-CVLBLAU INP/OBS CARE (MOD) KAREY UMAÑA Jul 21, 2025 12:30
[2025-07-21] MEDS: HYDROcodone-ACET 5/325MG TAB PO PRN (13:33)
[2025-07-21] MEDS: hydroCHLOROthiazide 25 MG TAB PO ONE (14:09)
[2025-07-21 14:11] VITALS: BP 136/93; PULSE 67; TEMP 98.6
[2025-07-21 15:08] VITALS: BP 144/97; PULSE 66; TEMP 97.8; O2SAT 97
[2025-07-21] MEDS: methylPREDNISolone SOD SUCC 40 MG/ML VL IV ONE (18:11)
[2025-07-21 21:11] VITALS: BP 128/88; PULSE 70; RESP 18; TEMP 97.9; O2SAT 96
[2025-07-22] VITALS: BP 136/94; PULSE 68; RESP 17; TEMP 98.5; O2SAT 96
[2025-07-22 00:10] VITALS: BP 136/94; PULSE 68; RESP 17; TEMP 98.5; O2SAT 96
[2025-07-22] MEDS: KETOROLAC TROMETH 30 MG/ML 1ML VIAL IV PRN (00:26)
[2025-07-22 05:00] VITALS: BP 136/99; PULSE 66; RESP 17; TEMP 98.1; O2SAT 99
[2025-07-22] MEDS: HYDROcodone-ACET 10/325MG TAB PO ONE (05:31)
[2025-07-22 07:20] LABS: Hematocrit 44.9 % (41.0-53.0); Hemoglobin 15.2 g/dL (13.5-17.5); Mean Corpuscular Hemoglobin 28.9 pg (28.0-32.0); Mean Corpuscular Volume 85.6 fL (80.0-100.0); Nucleated Red Blood Cells % 0.0 %
[2025-07-22 07:39] LABS: Alanine Aminotransferase 18 U/L (7-40); Albumin 4.3 g/dL (3.2-4.8); Alkaline Phosphatase 58 U/L (46-116); Anion Gap 9 (5-15); BUN/Creatinine Ratio 8.5 (10.0-20.0); Bilirubin, Total 0.6 mg/dL (0.2-1.0); Blood Urea Nitrogen 10 mg/dL (9-23); Calcium 9.5 mg/dL (8.7-10.4); Carbon Dioxide 23 mmol/L (20-31); Chloride 105 mmol/L (98-107); Potassium 4.2 mmol/L (3.5-5.1); Sodium 137 mmol/L (136-145); Total Protein 7.0 g/dL (5.7-8.2)
[2025-07-22 07:43] LABS: Glucose 113 mg/dL (74-106)
[2025-07-22 08:44] VITALS: BP 154/106; PULSE 75; RESP 18; TEMP 98.1; O2SAT 98
[2025-07-22] MEDS: methylPREDNISolone SOD SUCC 40 MG/ML VL IV SCH (08:47)
[2025-07-22] MEDS: hydroCHLOROthiazide 25 MG TAB PO SCH (08:48)
[2025-07-22 12:54] VITALS: BP 169/109; PULSE 69; RESP 14; TEMP 98.2; O2SAT 98
[2025-07-22] MEDS ORDERED: CYCL-837 PO (13:23)
[2025-07-22] MEDS ORDERED: TRAM-626 PO (13:23)
[2025-07-22] MEDS ORDERED: LIDO5DIS21 TOP (13:23)
--- NOTE | 2025-07-22 14:44 | DVHDS2 ---
Discharge Summary Date of Admission Jul 21, 2025 at 12:13 Date of Discharge: Jul 22, 2025 Admitting Diagnosis Back pain Labs/Diagnostic Data: Laboratory Results Test 07/22/25 06:37 07/21/25 08:05 White Blood Count 11.8 10^3/uL (4.4-10.8) Red Blood Count 5.24 10^6/uL (4.5-5.90) Hemoglobin 15.2 g/dL (13.5-17.5) Hematocrit 44.9 % (41.0-53.0) Mean Corpuscular Volume 85.6 fL (80.0-100.0) Mean Corpuscular Hemoglobin 28.9 pg (28.0-32.0) Mean Corpuscular Hemoglobin Concent 33.8 g/dL (32.0-36.0) Red Cell Distribution Width 14.4 % (11.8-14.3) Platelet Count 234 10^3/uL (140-450) Mean Platelet Volume 8.0 fL (6.9-10.8) Neutrophils (%) (Auto) 87.3 % (37.0-80.0) Lymphocytes (%) (Auto) 9.2 % (10.0-50.0) Monocytes (%) (Auto) 3.4 % (0.0-12.0) Eosinophils (%) (Auto) 0.0 % (0.0-7.0) Basophils (%) (Auto) 0.1 % (0.0-2.0) Neutrophils # (Auto) 10.3 10 ^3/uL (1.6-8.6) Lymphocytes # (Auto) 1.1 10 ^3/uL (0.4-5.4) Monocytes # (Auto) 0.4 10 ^3/uL (0-1.3) Eosinophils # (Auto) 0 10 ^3/uL (0-0.8) Basophils # (Auto) 0 10 ^3/uL (0-0.2) Nucleated Red Blood Cells 0.0 % Sodium Level 137 mmol/L (136-145) Potassium Level 4.2 mmol/L (3.5-5.1) Chloride Level 105 mmol/L (98-107) Carbon Dioxide Level 23 mmol/L (20-31) Anion Gap 9 (5-15) Blood Urea Nitrogen 10 mg/dL (9-23) Creatinine 1.17 mg/dL (0.700-1.30) Glomerular Filtration Rate Calc 83 mL/min (>90) BUN/Creatinine Ratio 8.5 (10.0-20.0) Serum Glucose 113 mg/dL (74-106) Calcium Level 9.5 mg/dL (8.7-10.4) Total Bilirubin 0.6 mg/dL (0.2-1.0) Aspartate Amino Transferase (AST) 21 U/L (13-40) Alanine Aminotransferase (ALT) 18 U/L (7-40) Alkaline Phosphatase 58 U/L (46-116) Total Protein 7.0 g/dL (5.7-8.2) Albumin 4.3 g/dL (3.2-4.8) Urine Color Light-yellow (Yellow) Urine Clarity Clear (Clear) Urine pH 6.5 (5.0-9.0) Urine Specific [place] 1.034 (1.001-1.035) Urine Protein Negative (Negative) Urine Ketones Negative (Negative) Urine Blood Negative /uL (Negative) Urine Nitrite Negative (Negative) Urine Bilirubin Negative (Negative) Urine Urobilinogen Normal mg/dL (Negative) Urine Leukocyte Esterase Negative /uL (Negative) Urine RBC 1 /hpf (0 - 3) Urine Microscopic WBC 1 /HPF (0-3) Urine Squamous Epithelial Cells None seen /hpf (<5) Urine Bacteria None seen /hpf (None Seen) Urine Mucus Few (None Seen) Urine Glucose Normal mg/dL (Normal) Other Laboratory Tests 07/22/25 06:37 Brief Hx & Hospital Course: History of Present Illness Mena Willard is a 34-year-old male with past medical history of hypertension, who came to the hospital for back pain. Patient states he woke up 07/21/2025, 0500 with severe back pain. He tried taking muscle relaxers and other home remedies without any improvement. He states the pain is severe 10/10 when trying to move, bend over, or cough. Course of hospitalization: Patient has CT scan of the abdomen and pelvis which was essentially unremarkable. Patient had lumbar spinal x-ray which was negative for any acute pathology. Patient is able to ambulate without any numbness, paresthesia or pain to his lower extremities. After further assessment of the patient, his pain is located in his lower portion of his right latissimus dorsi. Pain with palpation. No muscle separation noted. 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 Patient will be discharged home on tramadol, lidocaine patch, as well as Flexeril for many muscle spasms. He is to continuous antihypertensive medications and follow up with his PCP in 1-2 weeks. Physical examination General: Alert and Oriented x3. No acute distress. Well-nourished. Eyes: EOMI. Anicteric. HENT: Moist mucous membranes. Lungs: Clear to auscultation bilaterally. No accessory muscle use. Cardiovascular: Regular rate and rhythm. No murmur. No JVD. Abdomen: Soft, non-tender and non-distended. No palpable masses. Extremities: No edema. Non-tender. Skin: No rashes or lesions. Warm. Neurologic: No focal neurological deficits. CN II-XII grossly intact, but not individually tested. Psychiatric: Cooperative. Appropriate mood and affect. Total time spent with patient discussing and formulating plan of care: 35 minutes. This medical document was created using an electronic medical record system with [employer] dictation system. Although this document has been carefully reviewed, there may still be some phonetic and typographical errors. These areas are purely typographical due to imperfections of the software programs, and do not reflect any compromise in the patient's medical care. Condition at Discharge: Fair Final Diagnosis/Problems List Lumbar musculoskeletal strain Accelerated hypertension Discharge Disposition: Home Discharge Instruct/Medications Diet: Regular Follow Up/Referral: Follow up with PCP in 1-2 weeks Medications: Continue all home medications Flexeril 5 mg p.o. t.i.d. as needed for muscle spasms Lidocaine 5% to affected area of lumbar area Tramadol 50 mg p.o. t.i.d. as needed for [id number] pain Scheduled Cyclobenzaprine Hcl (Cyclobenzaprine Hcl), 1 TAB PO TID Hctz (Hydrochlorothiazide), 1 TAB PO DAILY, (Reported) Lidocaine (Lidoderm 5% Topical Patch), 1 PATCH TOP DAILY Scheduled PRN Hydralazine HCl (Hydralazine HCl), 1 TAB PO TID PRN, (Reported) Tramadol HCl (Tramadol HCl), 50 MG PO Q8HP PRN Discontinued Medications Erythromycin (Erythromycin), 1 MG OP TID Ophthalmic Irrigation Solution (Eye Wash), 1 BOT OP DAILY 36 Discharge Statement: "Patient was advised to return to the ER or call 911 if any headaches, dizziness, shortness of breath, chest pain, abdominal pain, bleeding, fevers, or worsening of medical condition. Patient was counseled about treatment plan, medications, possible side effects, patientverbalized understanding. All questions were answered to the best of my ability. This discharge took greater then 30 minutes in planning, reviewing documentation, counseling the patient, and discussing with other team members." ASSESSMENT ASSESSMENT Assessment Date of Service: Jul 22, 2025 Billing Provider: HUSSAIN FLOYD NP Common Visit Codes: 31501-YOQ/OBS DISCH DAY >30min HUSSAIN FLOYD NP Jul 22, 2025 14:44
[2025-07-22] MEDS ORDERED: HYDR-4902 PO (16:20)
[2025-07-22 16:43] VITALS: BP 159/86; PULSE 66; RESP 14; TEMP 98.5; O2SAT 97
== END 2025-07-22 17:15 | disposition home or self-care (01) | DRG 351 ==
LOC: ER 05:26 → OVERFLOW 12:13 → WEST WING 23:54
PROVIDERS: ADMIT Nurse Practitioner Acute Care; ATTEND Nurse Practitioner Acute Care
DX: S39.012A Strain of muscle, fascia and tendon of lower back, initial encounter (principal); I10 Essential (primary) hypertension; Z91.010 Allergy to peanuts; Y93.89 Activity, other specified; Y92.89 Other specified places as the place of occurrence of the external cause; Y99.0 Civilian activity done for income or pay; X50.1XXA Overexertion from prolonged static or awkward postures, initial encounter
CPT/HCPCS: 36415; 72110; 74176; 80048; 80053; 81001; 85025; 96374; 96375; G0378; J1885